=== PATIENT | female | born 1945 | race Caucasian/White ===

== ENCOUNTER 2020-07-13 20:18 | Emergency (ER) | payer MEDICARE, OTHER ==
[~2020-07-13 20:18] MED LIST: KEFLEX500 MG PO
[2020-07-13 21:11] LABS: HEMOGLOBIN 13.6 gm/dl (12.3-15.3); RED BLOOD COUNT 5.01 M/UL (4.00-5.10); WHITE BLOOD COUNT 25.5 K/UL (4.5-11.0)
[2020-07-13 21:32] LABS: BUN/CREATININE RATIO 36 (0-10)
== END 2020-07-13 23:42 | disposition short-term general hospital (02) ==
LOC: ER1 20:18
PROVIDERS: Physician Assistant
DX: S06.309A Unspecified focal traumatic brain injury with loss of consciousness of unspecified duration, initial encounter (principal); S81.811A Laceration without foreign body, right lower leg, initial encounter; M62.50 Muscle wasting and atrophy, not elsewhere classified, unspecified site; J44.9 Chronic obstructive pulmonary disease, unspecified; F17.210 Nicotine dependence, cigarettes, uncomplicated; Z20.822 Contact with and (suspected) exposure to COVID-19; W19.XXXA Unspecified fall, initial encounter
CPT/HCPCS: 0240U; 31500; 36600; 51702; 70450; 71045; 80053; 81001; 82550; 82553; 82803; 83605; 83874; 84484; 85025; 87040; 87086; 93005; 94002; 96365; 96366; 96368; 96375; 99285; J0330; J1100; J2405; J2704; J3370; J7030; Q9967